=== PATIENT | male | born 1955 | race African-American/Black ===

== ENCOUNTER 2019-01-29 15:09 | Emergency (ER) | payer MEDICAID ==
[~2019-01-29] VITALS: Ht 175.3 cm; Wt 89.0 kg
[2019-01-29] MEDS ORDERED: KETOROLAC 60MG/2ML VIAL IM NR (18:31)
[2019-01-29 21:54] VITALS: BP 119/87
== END 2019-01-29 22:07 | disposition home or self-care (01) ==
LOC: ER 15:09
DX: M19.90 Unspecified osteoarthritis, unspecified site (principal); M25.561 Pain in right knee; M25.461 Effusion, right knee; F17.200 Nicotine dependence, unspecified, uncomplicated
CPT/HCPCS: 73562; 96372; 99283; J1885